=== PATIENT | male | born 1985 | race African-American/Black ===

== ENCOUNTER 2020-01-29 02:27 | Emergency (ER) | payer OTHER ==
[~2020-01-29] VITALS: Ht 172.7 cm; Wt 94.0 kg
[2020-01-29 02:27] VITALS: BP 146/106
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
== END 2020-01-29 03:51 | disposition home or self-care (01) ==
LOC: ER 02:27
DX: S01.511A Laceration without foreign body of lip, initial encounter (principal); F10.129 Alcohol abuse with intoxication, unspecified; F19.10 Other psychoactive substance abuse, uncomplicated; R10.9 Unspecified abdominal pain; F17.210 Nicotine dependence, cigarettes, uncomplicated; Y90.9 Presence of alcohol in blood, level not specified; Y08.89XA Assault by other specified means, initial encounter; Y93.89 Activity, other specified; Y92.89 Other specified places as the place of occurrence of the external cause; Y99.8 Other external cause status
CPT/HCPCS: 70450; 71045; 72125; 72170; 99285

== ENCOUNTER 2021-04-11 17:50 | Emergency (ER) | payer OTHER ==
[~2021-04-11] VITALS: Ht 172.7 cm; Wt 94.0 kg
[2021-04-11 17:50] VITALS: BP 165/96
[2021-04-11] MEDS ORDERED: HYDROcodone/APAP 5/325MG 1 TAB TABLET PO ONE (18:30)
[2021-04-11] MEDS ORDERED: IBUPROFEN 600 MG TABLET. PO ONE (18:30)
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
== END 2021-04-11 19:30 | disposition home or self-care (01) ==
LOC: ER 17:50
DX: S63.601A Unspecified sprain of right thumb, initial encounter (principal); S63.602A Unspecified sprain of left thumb, initial encounter; F17.210 Nicotine dependence, cigarettes, uncomplicated; X58.XXXA Exposure to other specified factors, initial encounter; Y93.89 Activity, other specified; Y92.89 Other specified places as the place of occurrence of the external cause; Y99.8 Other external cause status
CPT/HCPCS: 73110; 73140; 99284